=== PATIENT | female | born 1990 | race Caucasian/White ===

== ENCOUNTER 2023-09-06 09:43 | Inpatient (IN) | payer SELFPAY ==
[2023-09-06] VITALS (72 sets, daily range): BP systolic 120–146; BP diastolic 64–94; PULSE 99–144; TEMP 36.4–37.4; O2SAT 89–100; BMI 34.8
--- NOTE | 2023-09-06 10:18 | HP.PCM.OB_ITS ---
HPI - General General Date of Admission: 09/06/23 Date of Service: 09/06/23 Chief Complaint: no movement HPI Narrative YARIEL PRADHAN, is a 32 F who presents from home after electronic console display operator could not obtain a heart rate today. Some cramping yesterday. No vb, lof. She is unsure of the last time she felt FM. She reports having an ultrasound around 22 week gestation. That was her only ultrasound. No lab work. No records to review. She states ALEXEI is based off a certain LMP with h/o regular menstrual cycles. 1 prior IUFD and cause unknown per patient. PFSH PFS Medical History (Updated 09/06/23 @ 10:[address] Jasmyne Rice, DO) Stillborn, normal Allergy/AdvReac Type Severity Reaction Status Date / Time No Known Allergies Allergy Verified 09/06/23 09:49 Surgical History (Updated 09/06/23 @ 09:54 by Erin Terrell) History of surgery Vital Signs Vital Signs Vital Signs: 09/06/23 09:31 09/06/23 09:31 09/06/23 09:36 Temperature Temperature Source Pulse Rate 120 H 121 H Blood Pressure BP Systolic BP Diastolic Pulse Ox 98 09/06/23 09:36 09/06/23 09:41 09/06/23 09:41 Temperature Temperature Source Pulse Rate 111 H Blood Pressure BP Systolic BP Diastolic Pulse Ox 98 98 09/06/23 09:43 09/06/23 09:43 09/06/23 09:46 Temperature Temperature Source Pulse Rate 117 H 116 H Blood Pressure 129/81 H BP Systolic 129 BP Diastolic 81 Pulse Ox 09/06/23 09:46 09/06/23 09:43 09/06/23 09:43 Temperature 98.3 F Temperature Source Temporal Pulse Rate Blood Pressure BP Systolic BP Diastolic Pulse Ox 97 09/06/23 09:51 09/06/23 09:51 09/06/23 09:56 Temperature Temperature Source Pulse Rate 120 H 121 H Blood Pressure BP Systolic BP Diastolic Pulse Ox 97 09/06/23 09:56 09/06/23 10:01 09/06/23 10:01 Temperature Temperature Source Pulse Rate 124 H Blood Pressure BP Systolic BP Diastolic Pulse Ox 97 96 09/06/23 10:06 09/06/23 10:06 Temperature Temperature Source Pulse Rate 122 H Blood Pressure BP Systolic BP Diastolic Pulse Ox 98 Weight Weight: 196 lb 9.6 oz Body Mass Index (BMI) 34.8 Physical Exam Const alert and no apparent distress General Appearance: comfortable GI soft to palpation and non-tender GI Narrative: [facility] Labs Labs Labs: No Data to Display Assessment & Plan (1) 40 weeks gestation of : PLAN: Bedside TAUS performed and no heart beat noted. Subjectively low to no fluid. Vertex presentation. Counseled patient and partner at bedside regarding demise and recommendation to stay for induction of labor. - There are no records of her care with the electronic console display operator. ALEXEI based on certain LMP per patient - Will obtain labs on admission - Will discuss option for genetic testing - Method of induction to be determined after cervical exam - Prior vaginal deliveries, so anticipate vaginal delivery (2) IUFD (intrauterine ): (3) No care in current :
[2023-09-06] MEDS: Oxytocin 15 Units/NS 250ml 15 UNITS/250 ML IV.SOLN 2 UNITS IV (11:25)
[2023-09-06] MEDS: Lactated Ringers 1,000 ML 50 ML IV (11:25)
[2023-09-06 11:39] LABS: Mucous, Urine 0 SEEN /hpf (<or=2+); Red Blood Cells-Urine 0 SEEN /hpf (0-5); White Blood Cells 0 SEEN /hpf (0-5)
[2023-09-06 11:42] LABS: Absolute Lymphocyte Count 1.16 X10^3/uL (0.83-4.51); Absolute Neutrophil Count 7.5 X10^3/uL (2.0-7.7); Basophil# 0.02 X10^3/uL; Basophil% 0.2 % (0-1); Eosinophil# 0.01 X10^3/uL; Eosinophils% 0.1 % (0-5); Hematocrit 39.4 % (37-47); Hemoglobin 13.3 g/dL (12.0-15.0); Lymphocyte # 1.16 X10^3/ul (0.83-4.51); Lymphocyte % 12.4 % (19-41); Mean Corp Hgb Conc 33.8 g/dL (32-36); Mean Corpuscular Hgb 31.6 pg (27.0-32.0); Mean Corpuscular Volume 93.6 fL (81-99); Mean Platelet Vol. 10.3 fl (6.2-12.0); Monocyte% 6.4 % (0-10); NRBC Flagged by Analyzer 0 % (0-5); Neutrophil # 7.51 X10^3/uL (2.7-7.7); Neutrophil % 80.4 % (47-70); Platelet Count 227 K/mm3 (150-450); RBC Distribution Width CV 13.2 % (11.6-14.6); RBC Distribution Width SD 44.8 fl (35.1-43.9); Red Blood Count 4.21 M/mm3 (4.2-5.4); White Blood Count 9.4 K/mm3 (4.4-11.0)
[2023-09-06 11:44] LABS: Color, Urine Yellow (Yellow); Glucose, Dipstick Normal (Normal); Ketone-Dipstick Negative (Negative); Leukocyte Esterase-Dipstick Negative /ul (Negative); Nitrite-Dipstick Negative (Negative); Occult Blood-Urine Negative /ul (Negative); Protein-Dipstick Negative (Negative); Urine Bilirubin Dipstick Negative (Negative); Urine Clarity Sl. Cloudy (Clear); Urine Urobilinogen Normal (Normal)
[2023-09-06 11:52] LABS: Bacteria 1+ /hpf (None Seen); Squamous Epithelial Cells - UA 0-5 SEEN /hpf (5-10)
[2023-09-06 12:57] LABS: Rubella IgG Reactive (Nonreactive); Syphilis Antibodies Non-reactive
[2023-09-06] MEDS: 0.9% Normal Saline Single 100 ML IV.SOLN. INTRA-UTER (12:58)
--- NOTE | 2023-09-06 13:02 | PCM.PN.BLA ---
Progress Note Pt doing OK. Partner at bedside. Comfortable at this time Assessment & Plan Assessment/Plan (1) 40 weeks gestation of : PLAN: Cont pitocin per protocol. ROM plus sent given anhydramnios on US. panel in process. Intracervical mullins placed in usual fashion and filled with 30 cc saline. Anticipate vaginal delivery. (2) IUFD (intrauterine ): (3) No care in current :
[2023-09-06 13:16] LABS: HIV - WCH Non-Reactive (Nonreactive); Hepatitis B Surface Antigen Non-Reactive (Nonreactive); Hepatitis C Antibody Non-Reactive (Nonreactive)
[2023-09-06 13:32] LABS: ROM Internal Control Test YES-OK TO RESULT pt. (Internal QC); ROM Patient Test Negative (Negative); Record Kit Lot#, ROM+ K1374
--- NOTE | 2023-09-06 13:36 | NURSING ---
IBCLC at bedside to speak with family. Pt. reports she has had a loss before and remembers her milk coming in. That delivery was a home , so pt. did not have IBCLC support that time but said a neighbor suggested wearing supportive bras or breast binding and that gave pt. a lot of comfort. IBCLC provided information that milk can come in over the next 3-5 days, and it can takes several days to a week for that supply to go down. Handout on for Grieving Mothers given to family. Pt. very appreciative for the support, and informed if she ever has questions or concerns she's always welcome to reach out to the team. Family denies further questions or concerns at this time.
[2023-09-06] MEDS: LACTATED RINGERS 500 ML 999 ML IV (17:27)
[2023-09-06] MEDS: fentaNYL-bupivacaine (epidural) 100 ML BAG EPIDURAL (18:34)
--- NOTE | 2023-09-06 21:08 | PCM.OPRPT ---
Problems Associated Problem List Diagnoses (1) 40 weeks gestation of : (2) IUFD (intrauterine ): (3) No care in current : Report of Operation Date of Procedure: 09/06/23 Pre-Operative Diagnosis: 40 week gestation, IUFD, no care Post-Operative Diagnosis: As above Surgery/Procedure Performed:: Description of Surgical Findings:: Demised female delivered in vertex presentation. A flattened facial profile was noted with almond shaped eyes. The was otherwise grossly normal in appearance. Normal appearing placenta with a few small calcifications. Normal appearing 3VC cord. Surgeon: Jasmyne Rice Type of Anesthesia: Epidural Special Medications: None Specimen's removed: Placenta Drains: None Estimated Blood Loss (mL): 100 Fluids Replaced: N/A Description of Procedure: The patient was complete and pushed with 1 contraction to deliver a demised female spontaneously, and without any force, traction, or delay. The cord was clamped and cut and the infant was handed off to the nursing staff per patient request. With fundal massage the placenta was delivered intact. The placenta was normal-appearing with a few small calcifications. The cord was normal-appearing. The uterus was explored x 1 and cleared of clot. The fundus was firm and bleeding hemostatic. No lacerations were noted. The patient expressed desire to be discharged tonight after initial recovery. Grafts/Implants Used: None Complications None Admit VTE Documentation VTE Present on Admission: No
--- NOTE | 2023-09-06 21:20 | DCINST_ITS ---
Discharge Instructions Diet Discharge Diet: No restrictions Activity Discharge Activity: May Shower May resume sexual activity in: 6 weeks (No intercourse or soaking in water for 6 weeks) Weight Bearing Status: Weight bearing as tolerated Dressing / Incision Call your doctor if you observe: Fever of 101 or Higher, Coldness, Increased Pain, Numbness or Tingling, Change in Color, Inability to urinate, Inability to have a bowel movement, Using more than 1 pad per hour, Shortness of breath, Dizziness, Fainting spells, Swelling in the ankles, Chest pain, Increased palpitations (irregular heartbeat), Calf discomfort and Uncontrolled pain Follow Up Care Please Follow Up With: Jasmyne Rice DO When: 6 weeks Test Results: Test results from this visit will be discussed in further detail at your follow- up appointment, if applicable. Discharge Plan Admission Admit Date/Time: 09/06/23 09:43 Primary Reason for Your Visit: delivery Attending Provider: Jasmyne Rice Primary Care Provider: Compa George Discharge Orders/Prescriptions Referrals / Follow Up: Compa George MD [Primary Care Provider] -
[2023-09-06] MEDS: Oxytocin 15 Units/NS 250ml 15 UNITS/250 ML IV.SOLN 83 UNITS IV (21:30)
--- NOTE | 2023-09-06 22:38 | NURSING ---
infant weighed 6lb 7 oz or 2925g and 19inches length
[2023-09-06] MEDS: Acetaminophen 500 MG Tablet PO (23:02)
[2023-09-07] MEDS: Rho(D) Immune Globulin 300 MCG (1500 Unit) Syringe IV (00:49)
[2023-09-07] MEDS: 0.9% Saline Lock 10 ML Syringe IV (00:49)
--- NOTE | 2023-09-11 11:12 | NURSING ---
Follow up phone call performed. Pt. did not answer. Voicemail left with unit phone number if pt. does desire to call back.
== END 2023-09-07 01:00 | disposition home or self-care (01) | DRG 806 ==
LOC: WPOUT 09:43 → WP 09:43
PROVIDERS: Admitting Provider Obstetrics & Gynecology; PCP Family Medicine; Visit Provider Obstetrics & Gynecology
DX: O36.4XX0 Maternal care for intrauterine death, not applicable or unspecified (principal); Z37.1 Single stillbirth; O41.03X0 Oligohydramnios, third trimester, not applicable or unspecified; O77.0 Labor and delivery complicated by meconium in amniotic fluid; Z3A.40 40 weeks gestation of pregnancy; Z87.59 Personal history of other complications of pregnancy, childbirth and the puerperium
CPT/HCPCS: 59025; 59050; 76815; 81001; 84112; 85025; 85461; 86703; 86762; 86780; 86803; 86850; 86900; 86901; 87340; 87491; 87591; 90384; 99221; J7120; A4216; G0378; J2790; J2791